=== PATIENT | male | born 1985 | race Caucasian/White ===

== ENCOUNTER 2021-10-28 22:58 | Emergency (ER) | payer OTHER, SELFPAY ==
--- NOTE | ~2021-10-28 | CT_ITS ---
EXAMINATION: CT SHOULDER WITHOUT CONTRAST, RIGHT CLINICAL INFORMATION: Question dislocation, tingling, prior injury COMPARISON: Radiographs from earlier today TECHNIQUE: Multidetector helical imaging was performed through the right shoulder. Coronal and sagittal reformatted images were created. This CT examination was performed using dose optimization techniques as appropriate, variously including the following: *Automated exposure control *Adjustment of mA and/or kV according to patient size (this includes techniques or standardized protocols for targeted exams where dose is matched to indication/reason for exam; i.e. extremities or head) *Use of iterative reconstruction technique DLP: 369 mGy-cm FINDINGS: Glenohumeral alignment is anatomic, and there are degenerative changes with spurring of the humeral head and glenoid. There is elevation of the distal clavicle relative to the acromion; the inferior surface that the distal clavicle lies approximately 1.8 cm above the inferior surface of the acromion. The coracoclavicular distance is increased, measuring approximately 1.5 cm. There is chronic appearing cortical irregularity of the acromion and a few adjacent small soft tissue calcification suggesting sequelae of old injury. No acute fracture is seen. Included portions of the chest appear unremarkable. No axillary lymphadenopathy is present. CT/CT shoulder RT wo con IMPRESSION: Acromioclavicular joint injury with elevation of the distal clavicle; this is age-indeterminate and may be chronic. Anatomic alignment across the glenohumeral joint with degenerative change.
--- NOTE | ~2021-10-28 | XR_ITS ---
EXAMINATION: XR SHOULDER, RIGHT CLINICAL INFORMATION: Deformity, suspect dislocation COMPARISON: None TECHNIQUE: Four views of the right shoulder. FINDINGS: Appearance on the scapular Y view raises possibility of posterior glenohumeral subluxation, though the glenohumeral alignment appears within normal limits on the axillary view, and appearance on the scapular Y view may be due to positioning/rotation. There is mild spurring at the glenohumeral articulation. There is elevation of the distal clavicle relative to the acromion suspicious for acromioclavicular joint separation which is age-indeterminate. Mild spurring is noted along the distal clavicle. XR/XR shoulder RT min 2V IMPRESSION: Elevation of the distal clavicle relative to the acromion, suspicious for acromioclavicular joint injury.
[2021-10-28 23:54] VITALS: BP 144/91; PULSE 92; RESP 20; TEMP 36.8; O2SAT 97; BMI 26.4
[2021-10-29 00:28] VITALS: BP 134/80; PULSE 76; RESP 18; O2SAT 98
--- NOTE | 2021-10-29 01:32 | ED.EXTPRO ---
HPI - Extremity Problem General Chief complaint: Extremity Injury, Upper Stated complaint: Shoulder pain Time Seen by Provider: 10/29/21 01:11 Source: patient Mode of arrival: ambulatory History of Present Illness HPI Narrative: 36-year-old male who presents with right shoulder pain after he was at work 3 days ago and was grasping on to some large vacuum device which he states ?jerked my arm up? and since that time states that he has had numbness over his shoulder and has had tingling that shoots down his arm and back up. His history is significant for having had rotator cuff injury to that shoulder approximately 3 years ago. Related Data Allergies Allergy/AdvReac Type Severity Reaction Status Date / Time No Known Allergies Allergy Verified 10/28/21 23:58 Review of Systems Review of Systems: Pertinent positives and negatives as stated in HPI 10 point review of systems is otherwise negative. PMFSH Past Medical History Source: nursing notes reviewed Social History Social History Advance Directives: No Physical Exam Vital Signs: Vital Signs: Last Vital Signs Temp 98.2 F 10/28/21 23:54 Pulse 76 10/29/21 00:28 Resp 18 10/29/21 00:28 BP 134/80 10/29/21 00:28 Pulse Ox 98 10/29/21 00:28 BMI result Body Mass Index 26.4 VITAL SIGNS: Reviewed. GENERAL: Well developed, well nourished, in no acute distress. HEAD: Normocephalic/atraumatic EYES: PERRLA, EOMI LUNGS: Normal breath sounds. No adventitious sounds or accessory muscle use. SpO2<98> CARDIOVASCULAR: Regular rate and rhythm without noted murmurs ABDOMEN: Soft, non-tender, non-distended with bowel sounds. RIGHT SHOULDER: Step-off at the superior aspect, palpable DP and PT without color changes to distal extremity, sensation is intact NEUROLOGIC: Alert and oriented x 4. Course Course Course Narrative: 36-year-old male with findings suspicious for dislocation. After review of all imaging studies patient appears to have chronic injury to the right shoulder without evidence of dislocation and received combination analgesics and a referral to follow-up with orthopedics. Discharge Plan Discharge Clinical Impression: Acute pain of right shoulder Patient Disposition: Home, Self-Care Instructions: Shoulder Pain (ED) Additional Instructions: 1. Resume all medications as prescribed. 2. Recommend [id number] Tylenol/ibuprofen as needed for pain control. 3. You have been provided referral to see orthopedics. Referrals: Varsha Boyd MD [Physician] - 2 days (Right shoulder pain)
--- NOTE | 2021-10-29 02:21 | PC.NURSE ---
Pt resting on stretcher playing with video games No apparent distress Awaiting X-ray results Will continue to mnitor
[2021-10-29] MEDS: Acetaminophen 325 MG TABLET 975 MG PO (04:46)
[2021-10-29] MEDS: Ketorolac Tromethamine 30 MG/ML VIAL 15 MG IM (04:47)
== END 2021-10-29 04:55 | disposition home or self-care (01) ==
PROVIDERS: Emergency Provider Student in an Organized Health Care Education/Training Program
DX: Z04.2 Encounter for examination and observation following work accident (principal); M25.511 Pain in right shoulder
CPT/HCPCS: 73030; 73200; 96372; 99284; J1885

== ENCOUNTER 2021-11-30 15:20 | Emergency (ER) | payer OTHER, SELFPAY ==
[2021-11-30 15:48] VITALS: BP 145/96; PULSE 73; RESP 18; TEMP 36.7; O2SAT 98; BMI 27.3
--- NOTE | 2021-11-30 17:23 | ED_ITS ---
HPI - General Adult General Chief complaint: General Medical Stated complaint: swollen face Time Seen by Provider: 11/30/21 18:03 Source: patient Mode of arrival: ambulatory Limitations: no limitations History of Present Illness HPI narrative: 36-year-old male presents with recurrent dental pain and swelling. Had a root canal a few years ago which gets infected on occasion. Woke up 3 days ago with pain and swelling started about 2 days ago. Patient is able to eat and drink without difficulty but states that chewing causes pain. He is having a difficult time sleeping. Does not recall when his last Tdap vac cine was updated. Does not have a dentist in this area. Onset (ago): day(s) (3) Location: face Radiation: non-radiation Severity: moderate Severity scale (1-10): 6 Quality: aching Pain Consistency: constant Relieving factors: none Exacerbating factors: eating and movement Associated symptoms: denies other symptoms Treatments prior to arrival: none Related Data Previous Rx's Medication Instructions Recorded amoxicillin 875 mg-potassium 1 tab PO Q12H 10 Days #20 tab 11/30/21 clavulanate 125 mg tablet (Augmentin) ibuprofen 600 mg tablet 600 mg PO Q6H PRN #30 tab 11/30/21 tramadol 50 mg tablet 50 mg PO BID PRN #5 tab 11/30/21 Allergies Allergy/AdvReac Type Severity Reaction Status Date / Time No Known Allergies Allergy Verified 10/28/21 23:58 Review of Systems Review of Systems: Constitutional: No Fever, No Chills ENT/Mouth: No swallowing difficulty, no change in voice, positive dental pain, positive jaw pain, positive facial swelling Eyes: No Eye Pain, No Swelling Cardiovascular: No Chest Pain, No SOB Respiratory: No Cough, No Sputum, No Wheezing, No Smoke Exposure, No Dyspnea Gastrointestinal: No Nausea, No Vomiting, No Diarrhea Genitourinary: No Dysuria Musculoskeletal: No Myalgias Skin: No rash Neuro: No Weakness, No Numbness, No Headache Yes all other systems are reviewed and are negative [facility] Past Medical History Attestation statement: The following information was validated with the patient. Source: old records reviewed Medical History No pertinent past medical history Social History Social History Advance Directives: No Advance Directives Information Provided: No Physical Exam Vital Signs: Vital Signs: Last Vital Signs Temp 98.1 F 11/30/21 15:48 Pulse 73 11/30/21 15:48 Resp 18 11/30/21 15:48 BP 145/96 H 11/30/21 15:48 Pulse Ox 98 11/30/21 15:48 BMI result Body Mass Index 27.3 Appearance: Alert. Oriented X3. No acute distress. Eyes: Pupils equal, round and reactive to light. ENT: Pharynx normal. No angioedema uvula midline. Able to manage secretions without difficulty. Swelling noted to the right mid mandibular along the gumline. Neck: Normal inspection. Neck supple. No cervical lymphadenopathy noted. CVS: Normal heart rate and rhythm. Pulses normal. Respiratory: No respiratory distress. Breath sounds normal. Abdomen: Soft and nontender. Skin: Skin warm and dry. Normal skin color. Normal skin turgor. Extremities: No lower extremity edema. Gait well-balanced well coordinated. Neuro: No motor deficit. No sensory deficit. Cranial nerves 2-12 intact HENMT: Teeth image: 1. Broken with caries Course Course Course Narrative: 36-year-old male presents with recurrent dental abscesses and caries from a root canal. Will update his Tdap vaccine today, give Augmentin Toradol and a prescription for tramadol 5 tablets. Patient requested I&D attem pt. Topical lidocaine utilized for numbing agent. Gauge needle inserted in to swollen pocket, no drainable abscess at this time. Patient tolerated procedure well. Patient does understand [place] follow-up with Dental. I did provide emergency numbers for him. Patient verbalizes understanding of and agrees to plan of care discharge home. Signs and symptoms indicating need for emergent intervention discussed and understood. Medical Decision Making Differential Diagnosis Differential Diagnosis: Dental caries, dental abscess Medical Records Medical records reviewed: Yes I reviewed the patient's medical records. Discharge Plan Discharge Clinical Impression: Pain due to dental caries, Abscess, dental Patient Disposition: Home, Self-Care Instructions: Dental Abscess (ED), Toothache (ED) Additional Instructions: You were evaluated for dental pain and abscess. Please take Augmentin 875 mg twice a day for the next 10 days. Take ibuprofen 600 mg every 6 hours as needed for pain management. I also prescribed tramadol which is a narcotic. This medication has high risk for addiction and abuse. Do not drive or operate machinery while taking this medication. This medication can delay reaction time, increased risk for falls, cause drowsiness, and constipation. Drink plenty of fluids while taking this medication. Follow-up with a dentist. I provided Emergency dental numbers. You must call and find a provider that will accept you. Thank you for choosing this emergency department for evaluation. Please follow-up with primary care physician as needed. Return to the emergency department for any new, concerning, or worsening symptoms. Prescriptions: New amoxicillin-pot clavulanate [Augmentin] 875-125 mg tablet 1 tab PO Q12H 10 Days Qty: 20 RF: 0 tramadol 50 mg tablet 50 mg PO BID PRN (Reason: pain) Qty: 5 RF: 0 ibuprofen 600 mg tablet 600 mg PO Q6H PRN (Reason: fever or pain) Qty: 30 RF: 0 Stand Alone Forms: Dental Emergency Numbers
[2021-11-30] MEDS: Diphth,Pertus(ACell),Tet Adult 0.5 ML SYRINGE IM (17:42)
[2021-11-30] MEDS: Amoxicillin/Potassium Clav 875 MG TABLET PO (17:43)
[2021-11-30] MEDS: Ketorolac Tromethamine 60 MG/2 ML VIAL IM (17:43)
== END 2021-11-30 18:52 | disposition home or self-care (01) ==
PROVIDERS: Emergency Provider Emergency Medicine
DX: K02.9 Dental caries, unspecified (principal); K04.7 Periapical abscess without sinus; K08.9 Disorder of teeth and supporting structures, unspecified
CPT/HCPCS: 41800; 90471; 90715; 96372; 99284; J1885

== ENCOUNTER 2021-12-27 13:50 | Emergency (ER) | payer OTHER, SELFPAY ==
--- NOTE | ~2021-12-27 | CT_ITS ---
EXAMINATION: CT SOFT TISSUE NECK WITH CONTRAST CLINICAL INFORMATION: Left-sided facial swelling. Dental abscess versus retropharyngeal abscess. COMPARISON: None available. TECHNIQUE: Multidetector helical imaging was performed in the axial plane following the administration of 60 mL of Omnipaque 350 intravenous contrast. Multiple axial reformats and coronal/sagittal reconstructions were created the technologist workstation for review. This CT examination was performed using dose optimization techniques as appropriate, variously including the following: *Automated exposure control. *Adjustment of mA and/or kV according to patient size (this includes techniques or standardized protocols for targeted exams where dose is matched to indication/reason for exam; i.e. extremities or head). *Use of iterative reconstruction technique. DLP: 650 mGy-cm FINDINGS: Extensive maxillary and mandibular odontogenic enamel erosions and periapical lucencies. The right anterior aspect of the alveolar process of the maxilla is eroded surrounding the right lateral incisor, canine, and 1st premolar. The outer table of the cortex of the alveolar process of the maxilla is eroded adjacent to the left 1st molar. There is moderate edema within the left buccal soft tissues without demonstrated overt drainable collection. There is osseous uncovering of the buccal roots of the maxillary left 1st molar with associated moderate left maxillary mucosal thickening. Mild mucosal thickening of the remaining paranasal sinuses. The mastoid air cells and middle ear cavities are clear. No demonstrated focal lesion or abnormal enhancement within the intrinsic tissues of the tongue or floor of mouth. Normal mucosal contours of the pharynx and larynx without abnormal enhancement. No significant cutaneous thickening. Faint fat stranding in the left premaxillary soft tissues. No discrete fluid collection within the deep tissues of the neck. Otherwise, the premaxillary, retromaxillary, pterygopalatine fossa, orbital apical, parapharyngeal, and prelaryngeal adipose tissue is maintained. Normal appearance of the parotid, submandibular, and thyroid glands. A reniform shaped left level Ib lymph node measures up to 1.6 cm, likely reactive in nature. Left level IIa lymph nodes measure up to 1.3 cm. Otherwise, scattered subcentimeter lymph nodes bilaterally, none of which are pathologically enlarged or abnormally enhancing. Normal appearance of the hyoid bone, thyroid cartilage, or cartilaginous trachea. The airways remains widely patent. No radiopaque foreign bodies. The atlantooccipital and atlantoaxial articulations remain well aligned. There is anatomic alignment of the vertebral bodies and posterior elements. No evidence of acute fracture or subluxation of the cervical spine. The vertebral body heights are maintained. The intervertebral disc spaces are maintained. No evidence of epidural collection. There is no prevertebral soft tissue swelling. Normal opacification of the cervical arterial and venous structures. The visualized portion of the skull base is without significant abnormalities. The visualized paranasal sinuses are clear. The mastoid air cells and middle ear cavities are clear. No demonstrated significant periapical odontogenic disease. CT Upper Chest: The visualized lung apices and upper mediastinum are within normal limits. CT/CT soft tissue neck w con IMPRESSION: Extensive maxillary and mandibular odontogenic disease. Multifocal erosions of the alveolar process of the maxilla. Moderate edema throughout the left buccal soft tissues likely odontogenic in nature. No demonstrated discrete drainable fluid collection at this time. There is also osseous uncovering of the buccal roots of the maxillary left 1st molar. Associated left maxillary odontogenic sinusitis. Mildly prominent left upper cervical chain lymph nodes, likely reactive in nature. No additional lesion, collection, pathologically enlarged lymphadenopathy, or abnormal enhancement within the soft tissues of the neck.
[2021-12-27 15:06] VITALS: BP 148/98; PULSE 112; RESP 18; TEMP 36.9; O2SAT 97; BMI 26.6
--- NOTE | 2021-12-27 17:07 | ED_ITS ---
HPI - Dental/Oral General Chief complaint: Dental/Oral Stated complaint: Facial swelling/SOB Time Seen by Provider: 12/27/21 16:25 Source: patient Mode of arrival: ambulatory Limitations: no limitations History of Present Illness HPI Narrative: 36-year-old male presents to ED for dental pain/facial swelling. Patient patient states history of poor oral dental hygiene with cracked tooth and left upper molar with decay. Patient states has follow up with dentist. Patient states last night he had dental pain and this morning woke up with facial swelling. Related Data Previous Rx's Medication Instructions Recorded amoxicillin 875 mg-potassium 1 tab PO Q12H 10 Days #20 tab 11/30/21 clavulanate 125 mg tablet (Augmentin) ibuprofen 600 mg tablet 600 mg PO Q6H PRN #30 tab 11/30/21 tramadol 50 mg tablet 50 mg PO BID PRN #5 tab 11/30/21 amoxicillin 875 mg-potassium 1 tab PO Q12H 10 Days #20 tab 12/27/21 clavulanate 125 mg tablet naproxen 500 mg tablet 500 mg PO BID PRN 10 Days #20 tab 12/27/21 Allergies Allergy/AdvReac Type Severity Reaction Status Date / Time No Known Allergies Allergy Verified 12/27/21 15:06 Review of Systems Review of Systems: Left upper dental upper molar pain with facial swelling. Yes all other systems are reviewed and are negative PMFSH Past Medical History Medical History No pertinent past medical history Social History Social History Advance Directives: No Advance Directives Information Provided: Yes Physical Exam Vital Signs: Vital Signs: Last Vital Signs Temp 98.5 F 12/27/21 15:06 Pulse 102 H 12/27/21 18:44 Resp 18 12/27/21 18:44 BP 151/88 H 12/27/21 18:44 Pulse Ox 98 12/27/21 18:44 BMI result Body Mass Index 26.6 Const: General: cooperative, healthy appearing, comfortable, no acute distress, well developed, alert, awake and Physically active Orientation/consciousness: patient oriented x3 HENMT: Head images: 1. Left-sided facial/erythema swelling with closed eyes. Negative for fluctuance or mass on palpation. Teeth image: 1. No tooth present, but socket consist of Decay and yellow collection. Eyes: General: appearance normal, both eyes and all related structures Neck: Neck: Yes normal visual inspection, Yes full ROM, Yes no lymphadenopathy, Yes no meningeal signs, Yes trachea midline, Yes supple, No anterior neck swelling and No tender Chest: Chest palpation & inspection: normal inspection of the chest and normal palpation of entire chest wall Resp: Effort & Inspection: normal respiratory effort and able to speak in complete sentences Auscultation: clear to auscultation bilaterally Cardio: Jugular venous distension: no JVD Heart sounds: S1 normal heart sound present and S2 normal heart sound present GI: Inspection: Yes normal to inspection and No abdominal wall ecchymosis Palpation (GI): Soft to palpation, not firm, nontender, no guarding and not rigid : General: No CVA tenderness and Yes no CVA tenderness Back/Spine/Pelvis: Back: no CVA tenderness, No CVA tenderness and No back tenderness Skin: General skin exam: no rashes or lesions noted and elasticity normal Neuro: General: patient oriented x3, gait normal, no meningeal signs and CN's II-XI intact bilaterally Cranial nerves: Yes CN's II-XII intact bilaterally Extrem: General: Yes normal to inspection and Yes full ROM Psych: Appearance: grossly normal, well kempt and not disheveled Course Course Course Narrative: No obvious drainage of abscess on evaluation. We will do labs, IV antibiotics, and sent for imaging of face. Reevaluation(s) Reevaluation #1: Labs negative for elevated white blood cell count. Facial CT negative for Jamil angina or retropharyngeal abscess. Negative for any tracking abscess in sinuses or in dental area. CT scan just shows severe odotogenic disease. Patient will be discharged with oral antibiotics Time: 22:45 MDM - Dental/Oral MDM Narrative Medical decision making narrative: Odontogenic diseases Lab Data Result diagrams: 12/27/21 17:27 12/27/21 17:27 Labs: Lab Results 12/27/21 12/27/21 Range/Units 17:27 17:27 WBC 10.8 (4.8-10.8) X10*3/uL RBC 4.60 (4.60-5.80) X10*6/uL Hgb 14.7 (14.0-18.0) g/dl Hct 41.9 L (42.0-52.0) % MCV 91.1 (80.0-98.0) fL MCH 32.0 (27.0-33.0) pg MCHC 35.1 (31.0-36.0) g/dl RDW 12.8 (11.0-16.0) % Plt Count 215 (160-400) X10*3/uL MPV 8.4 L (9.4-12.4) fL Immature Gran % (Auto) 0.2 (0.0-0.4) % Neut % (Auto) 61.1 (45-73) % Lymph % (Auto) 21.6 (20-40) % [place] % (Auto) 14.0 H (2-11) % Eos % (Auto) 2.7 (0-4) % Baso % (Auto) 0.4 (0-2) % Lymph # (Auto) 2.3 (1.2-4.9) X10*3/uL [place] # (Auto) 1.5 H (0.1-1.2) X10*3/uL Eos # (Auto) 0.3 (0.0-0.4) X10*3/uL Baso # (Auto) 0.0 (0.0-0.2) X10*3/uL Abs Immat Gran (auto) 0.02 (0.00-0.03) X10*3/uL Absolute Neuts (auto) 6.6 (2.0-8.3) x10*3/uL Absolute Nucleated RBC 0.000 (0.0-0.012) X10*3/uL Nucleated RBC % (auto) 0.0 (0.0-0.2) /100WBC Smear Tech's Comments VERIFIED Sodium 137 (135-145) mmol/L Potassium 4.4 (3.3-5.1) mmol/L Chloride 105 (96-108) mmol/L Carbon Dioxide 23 (22-29) mmol/L Anion Gap 13 (12-20) BUN 14 (9-16) mg/dL Creatinine 1.07 (0.5-1.4) mg/dL Estim Creat Clear Calc 96.3 Estimated GFR > 60 Random Glucose 95 (60-115) mg/dL Calcium 9.1 (8.4-10.2) mg/dL Total Bilirubin 1.0 (0.0-1.0) mg/dL AST 14 (5-37) U/L ALT 18 (0-40) U/L Alkaline Phosphatase 59 (39-117) U/L Total Protein 7.2 (6.5-8.0) g/dL Albumin 4.4 (3.5-5.0) g/dL Discharge Plan Discharge Clinical Impression: Gingival disease, Toothache Patient Disposition: Home, Self-Care Instructions: Toothache (ED), Periodontal Disease (DC) Additional Instructions: CT scan came back negative for any abscess. You need to follow-up with your dentist. She will be discharged with antibiotic and pain medication. Return to the ED for worsening swelling, shortness of breath, drooling, chest pain, inability to talk, change in voice, or any other concerning symptoms. Prescriptions: New amoxicillin-pot clavulanate 875-125 mg tablet 1 tab PO Q12H 10 Days Qty: 20 0RF naproxen 500 mg tablet 500 mg PO BID PRN (Reason: pain) 10 Days Qty: 20 0RF No Action amoxicillin-pot clavulanate [Augmentin] 875-125 mg tablet 1 tab PO Q12H 10 Days Qty: 20 0RF tramadol 50 mg tablet 50 mg PO BID PRN (Reason: pain) Qty: 5 0RF ibuprofen 600 mg tablet 600 mg PO Q6H PRN (Reason: fever or pain) Qty: 30 0RF Stand Alone Forms: Work/School Release Interventions: ED Discharge Assessment Last Done: 12/27/21 23:27 Discharge Date/Time: 12/27/21 23:28 Print Language: B[place]ian
[2021-12-27] MEDS: 0.9 % Sodium Chloride 1,000 ML 999 ML IV (17:31)
[2021-12-27 17:50] LABS: Basophils Percent Auto 0.4 % (0-2); Eosinophils Absolute Auto 0.3 X10*3/uL (0.0-0.4); Eosinophils Percent Auto 2.7 % (0-4); Hematocrit 41.9 % (42.0-52.0); Hemoglobin 14.7 g/dl (14.0-18.0); Imm Gran Abs Auto 0.02 X10*3/uL (0.00-0.03); Imm Gran Pct Auto 0.2 % (0.0-0.4); Lymphocytes Absolute Auto 2.3 X10*3/uL (1.2-4.9); Lymphocytes Percent Auto 21.6 % (20-40); MANUAL DIFF FLAG SCAN; Mean Corpuscular HGB Conc 35.1 g/dl (31.0-36.0); Mean Corpuscular Volume 91.1 fL (80.0-98.0); Mean Platelet Volume 8.4 fL (9.4-12.4); Monocytes Absolute Auto 1.5 X10*3/uL (0.1-1.2); Neutrophils Absolute Auto 6.6 x10*3/uL (2.0-8.3); Neutrophils Percent Auto 61.1 % (45-73); Platelet Count 215 X10*3/uL (160-400); Red Cell Distribution Width 12.8 % (11.0-16.0); SCAN SMEAR FLAG 1; White Blood Count 10.8 X10*3/uL (4.8-10.8)
[2021-12-27 18:12] LABS: SLIDE REVIEW VERIFIED
[2021-12-27 18:17] LABS: Alanine Aminotransferase 18 U/L (0-40); Albumin Level 4.4 g/dL (3.5-5.0); Alkaline Phosphatase 59 U/L (39-117); Anion Gap 13 (12-20); Aspartate Amino Transferase 14 U/L (5-37); Blood Urea Nitrogen 14 mg/dL (9-16); Calcium 9.1 mg/dL (8.4-10.2); Carbon Dioxide 23 mmol/L (22-29); Chloride 105 mmol/L (96-108); Creatinine Clr Calc Pharmacy 96.3; Estimated Glomerular Filt Rate > 60; Glucose Random 95 mg/dL (60-115); Potassium 4.4 mmol/L (3.3-5.1); Sodium 137 mmol/L (135-145); Total Protein 7.2 g/dL (6.5-8.0)
[2021-12-27 18:44] VITALS: BP 151/88; PULSE 102; RESP 18; O2SAT 98
[2021-12-27] MEDS: cefTRIAXone sodium 2 GM in 0.9 % Sodium Chloride 50 ML IV (18:47)
[2021-12-27] MEDS: iohexoL 350 MG/ML 100 ML INFUS..BTL IV (20:26)
== END 2021-12-27 23:28 | disposition home or self-care (01) ==
PROVIDERS: Physician Assistant; Emergency Provider Internal Medicine
DX: K05.10 Chronic gingivitis, plaque induced (principal); K08.89 Other specified disorders of teeth and supporting structures; R06.02 Shortness of breath; M54.2 Cervicalgia; Z79.899 Other long term (current) drug therapy
CPT/HCPCS: 36415; 70491; 80053; 85025; 87040; 96361; 96374; 99284; J0696; Q9967

== ENCOUNTER 2022-05-05 00:28 | Emergency (ER) | payer OTHER, SELFPAY ==
--- NOTE | ~2022-05-05 | XR_ITS ---
EXAMINATION: XR ELBOW, LEFT CLINICAL INFORMATION: Pain COMPARISON: None TECHNIQUE: AP, lateral, and oblique views of the left elbow. XR/XR elbow LT 2V FINDINGS/IMPRESSION: No fractures. There may be mild anterior subluxation of the radial head with respect to the capitellum on the lateral view, however this may be projectional. Alignment at the radiocapitellar joint in the other projections is normal. No joint effusion. Joint space is maintained.
[2022-05-05 00:40] VITALS: BP 132/77; PULSE 79; RESP 15; TEMP 36.2; O2SAT 98; BMI 27.3
--- NOTE | 2022-05-05 01:07 | ED_ITS ---
HPI - Extremity Problem General Chief complaint: Extremity Problem Stated complaint: Elbow Inj/Work Inj Time Seen by Provider: 05/05/22 01:06 Source: patient Mode of arrival: ambulatory Limitations: no limitations History of Present Illness HPI Narrative: 37-year-old male came in for evaluation of left elbow injury and pain. Left hand dominant patient was working when he accidentally hit his left elbow in the wall, patient been complaining left elbow pain with shooting pain to the left forearm and hand. Related Data Previous Rx's Medication Instructions Recorded amoxicillin 875 mg-potassium 1 tab PO Q12H 10 days #20 tabs 11/30/21 clavulanate 125 mg tablet (Augmentin) ibuprofen 600 mg tablet 600 mg PO Q6H PRN fever or pain 11/30/21 #30 tabs tramadol 50 mg tablet 50 mg PO BID PRN pain #5 tabs 11/30/21 amoxicillin 875 mg-potassium 1 tab PO Q12H 10 days #20 tabs 12/27/21 clavulanate 125 mg tablet naproxen 500 mg tablet 500 mg PO BID PRN pain 10 days #20 12/27/21 tabs ibuprofen 600 mg tablet 600 mg PO TID PRN pain #30 tabs 05/05/22 Allergies Allergy/AdvReac Type Severity Reaction Status Date / Time No Known Allergies Allergy Verified 12/27/21 15:06 Review of Systems Review of Systems: All other systems are reviewed and are negative Constitutional: Reports as per HPI and Reports no additional constitutional complaints Eyes: Reports as per HPI and Reports no additional eye complaints Reports system reviewed and no additional complaints, except as documented Cardiovascular: Reports as per HPI and Reports no additional cardiovascular complaints Respiratory: Reports as per HPI and Reports no additional respiratory complaints Gastrointestinal: Reports as per HPI and Reports no additional gastrointestinal complaints Genitourinary: Reports no additional female genitourinary complaints Musculoskeletal: Reports no additional musculoskeletal complaints Skin/Breast: Reports system reviewed and no additional complaints, except as docu Psychiatric: Reports no additional psychiatric complaints Endocrine: Reports no additional endocrine complaints Hematologic/Lymphatic: Reports no additional hematologic/lymphatic complaints Allergic/Immunologic: Reports no additional allergic/immunologic complaints Reports system reviewed and no additional complaints, except as documented and Reports Abnormal speech present FOR[facility]LY [facility] Past Medical History Medical History No pertinent past medical history Social History Social History Advance Directives: No Physical Exam Vital Signs: Vital Signs: Last Vital Signs Temp 97.2 F 05/05/22 00:40 Pulse 79 05/05/22 00:40 Resp 15 05/05/22 00:40 BP 132/77 05/05/22 00:40 Pulse Ox 98 05/05/22 00:40 O2 Del Method 05/05/22 00:40 BMI result Body Mass Index 27.3 vital signs have been reviewed as appeared to be correct. Blood pressure normal. Heart rate normal. Respiration rate normal. Temperature normal. Oxygen saturation normal. Appearance: Alert. Oriented X3. No acute distress. Head: Normal external exam. Normocephalic. Atraumatic. No Cobb signs noted. No raccoon eyes noted Eyes: PERRLA. EOMI. Conjunctiva and sclera normal. Eyelids normal. ENT: TM's Normal. Pharynx normal. Uvula midline. Moist mucous membranes. No trismus noted. No drooling noted. No muffled voice noted. Neck: Normal inspection. Neck supple. FROM. No adenopathy. Thyroid Normal. No meningeal signs. No neck mass noted. CVS: Normal heart rate and rhythm. Heart sound normal. No murmurs noted. Pulses normal throughout. Respiratory: No respiratory distress. Painless inspiration. Breath sounds normal. No wheezes/rales/rhonchi noted. Chest nontender. No accessory muscle usage noted or decreased air movement noted. Abdomen: Soft and nontender. Bowel sounds normal in all 4 quadrants. No distention noted. No organomegaly noted. No visible injury noted. Back: No CVA tenderness. Full range of motion noted. Skin: Skin warm and dry. Normal skin color. Normal skin turgor. No rashes/lesions/lacerations noted. Extremities: No lower extremity edema. Extremities exhibit normal range of motion. Left elbow tenderness, no deformity, no swelling. Neuro: Oriented X 3. Cranial nerve exam: II-XII are grossly intact No motor deficit. No sensory deficit. Reflexes normal. Course Course Course Narrative: Left elbow injury at work. No acute fracture. NSAIDs p.r.n. pain. MDM - Extremity (Nontraumatic) Imaging Data left elbow x-ray: Attestation: I personally reviewed and interpreted this imaging study as follows: Radiologist's impression: No fractures. There may be mild anterior subluxation of the radial head with respect to the capitellum on the lateral view, however this may be projectional. Alignment at the radiocapitellar joint in the other projections is normal. No joint effusion. Joint space is maintained. ? Discharge Plan Discharge Clinical Impression: Contusion of elbow, left, Anterior subluxation of left radial head Patient Disposition: Home, Self-Care Instructions: Contusion in Adults (ED) Prescriptions: New ibuprofen 600 mg tablet 600 mg PO TID PRN (Reason: pain) Qty: 30 0RF No Action amoxicillin-pot clavulanate 875-125 mg tablet 1 tab PO Q12H 10 Days Qty: 20 0RF naproxen 500 mg tablet 500 mg PO BID PRN (Reason: pain) 10 Days Qty: 20 0RF amoxicillin-pot clavulanate [Augmentin] 875-125 mg tablet 1 tab PO Q12H 10 Days Qty: 20 0RF tramadol 50 mg tablet 50 mg PO BID PRN (Reason: pain) Qty: 5 0RF ibuprofen 600 mg tablet 600 mg PO Q6H PRN (Reason: fever or pain) Qty: 30 0RF Referrals: Physician,None [Primary Care Provider] - Baldomero Colon MD [Physician] -
--- NOTE | 2022-05-05 01:39 | PC.NURSE ---
Assumed care of pt ROM intact NAD Will continue to monitor
== END 2022-05-05 01:39 | disposition home or self-care (01) ==
PROVIDERS: Emergency Provider Emergency Medicine
DX: S53.012A Anterior subluxation of left radial head, initial encounter (principal); S50.02XA Contusion of left elbow, initial encounter; W22.09XA Striking against other stationary object, initial encounter; Y93.9 Activity, unspecified; Y92.9 Unspecified place or not applicable; Y99.9 Unspecified external cause status
CPT/HCPCS: 73070; 99282; 99283

== ENCOUNTER → 2023-08-24 08:47 | Outpatient (BNVA) | payer OTHER, SELFPAY | PROVIDERS: Visit Provider Physician Assistant | DX: S43.111A Subluxation of right acromioclavicular joint, initial encounter (principal); X58.XXXA Exposure to other specified factors, initial encounter | CPT/HCPCS: 99203 ==

== ENCOUNTER → 2023-09-03 09:35 | Outpatient (BNVA) | payer OTHER, SELFPAY | PROVIDERS: Visit Provider Physician Assistant | DX: S43.111A Subluxation of right acromioclavicular joint, initial encounter (principal); X58.XXXA Exposure to other specified factors, initial encounter | CPT/HCPCS: 99213 ==

== ENCOUNTER → 2025-04-28 12:30 | Outpatient (BNVA) | payer OTHER, SELFPAY | PROVIDERS: Visit Provider Physician Assistant Medical | DX: S40.011A Contusion of right shoulder, initial encounter (principal); V83.5XXA Driver of special industrial vehicle injured in nontraffic accident, initial encounter | CPT/HCPCS: 99203 ==

== ENCOUNTER → 2025-05-05 11:21 | Outpatient (BNVA) | payer OTHER, SELFPAY | PROVIDERS: Visit Provider Physician Assistant Medical | DX: S40.011A Contusion of right shoulder, initial encounter (principal); V83.5XXA Driver of special industrial vehicle injured in nontraffic accident, initial encounter; M24.811 Other specific joint derangements of right shoulder, not elsewhere classified | CPT/HCPCS: 73010; 99213 ==

== ENCOUNTER → 2025-05-25 12:51 | Outpatient (BNVA) | payer OTHER, SELFPAY | PROVIDERS: Visit Provider Physician Assistant Medical | DX: S40.011D Contusion of right shoulder, subsequent encounter (principal); V83.5XXD Driver of special industrial vehicle injured in nontraffic accident, subsequent encounter | CPT/HCPCS: 99213 ==